=== PATIENT | female | born 1980 | race Caucasian/White ===

== ENCOUNTER 2017-06-01 15:11 | Emergency (ER) | payer OTHER ==
[2017-06-01 15:16] VITALS: BMI 24.7
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
[2017-06-01] MEDS ORDERED: CYCLOBENZAPRINE HCL 10 MG TABLET (FP) PO ONE (15:27)
[2017-06-01 15:32] VITALS: BP 135/84; PULSE 88; TEMP 98.5
[2017-06-01] MEDS ORDERED: CYCLOBENZAPRINE HCL 10 MG TABLET (FP) ONE (15:36)
== END 2017-06-01 16:34 | disposition home or self-care (01) ==
LOC: FER 15:11
DX: S16.1XXA Strain of muscle, fascia and tendon at neck level, initial encounter (principal); Y04.2XXA Assault by strike against or bumped into by another person, initial encounter; Y93.89 Activity, other specified; Y92.159 Unspecified place in reform school as the place of occurrence of the external cause; Y99.0 Civilian activity done for income or pay
CPT/HCPCS: 73030-TC-LT; 99282-25

== ENCOUNTER 2018-04-04 00:10 | Emergency (ER) | payer OTHER ==
[2018-04-04 00:31] VITALS: TEMP 98.5; BMI 29.0
--- NOTE | 2018-04-04 02:19 | PDOC ---
History of Present Illness - General Chief Complaint: Pain, Acute Stated Complaint: STOMACH AND JOINT PAIN Time Seen by Provider: 04/04/18 01:42 History Source: Patient - History of Present Illness Initial Comments: 04/04/18 02:43 37 year old female c/o r/l abdominal pain radiating to right flank x 1 day. reports 1 episode of vomiting today. denies fever/ chills, urinary symptoms, NVD + flatus Past History - Past Medical History Allergies/Adverse Reactions: Allergies Allergy/AdvReac Type Severity Reaction Status Date / Time No Known Allergies Allergy Verified 06/01/17 15:12 Home Medications: Ambulatory Orders Cyclobenzaprine HCl [Flexeril 10 mg] 10 mg PO TID PRN #9 tablet 06/01/17 Duloxetine HCl [Cymbalta] 60 mg PO DAILY 06/01/17 Topiramate [Topamax] 100 mg PO DAILY 06/01/17 Polyethylene Glycol 3350 [Miralax (For Daily Use) -] 17 gm PO DAILY #1 bottle COPD: No - Suicide/Smoking/Psychosocial Hx Smoking History: Never smoked Have you smoked in the past 12 months: No Hx Alcohol Use: No Drug/Substance Use Hx: No Substance Use Type: Alcohol Review of Systems - Review of Systems Able to Perform ROS?: Yes Is the patient limited Maori proficient: No Constitutional: No: Symptoms Reported, See HPI, Chills, Diaphoresis, Fever, Loss of Appetite, Malaise, Night Sweats, Weakness, Weight Stable, Unintentional Wgt. Loss, Unexplained wgt Loss, Other ABD/GI: Yes: Abdominal cramping. No: Symptoms Reported, See HPI, Abdominal Distended, Abd. Pain w/ defecation, Blood Streaked Bowels, Constipated, Diarrhea , Difficulty Swallowing, Nausea, Poor Appetite, Poor Fluid Intake, Rectal Bleeding, Vomiting, Indigestion, Tarry Stools, Other : No: Symptoms Reported, See HPI, Burning, Dysuria, Discharge, Frequency, Flank Pain, Hematuria, Incontinence, Pain, Urgency, Testicular Mass, Testicular Swelling, Lesions, Testicular Pain, Other Musculoskeletal: Yes: Joint Pain. No: Symptoms Reported, See HPI, Back Pain, Gout, Joint Swelling, Muscle Pain, Muscle Weakness, Neck Pain, Joint Stiffness, Other Neurological: No: Symptoms reported, See HPI, Headache, Numbness, Paresthesia, Pre-Existing Deficit, Seizure, Tingling, Tremors, Weakness, Unsteady Gait, Ataxia, Dizziness, Other *Physical Exam - Vital Signs Last Vital Signs Temp Pulse Resp BP Pulse Ox 98.5 F 110 H 20 125/54 L 96 04/04/18 00:25 04/04/18 00:25 04/04/18 00:25 04/04/18 00:25 04/04/18 00:25 - Physical Exam General Appearance: Yes: Appropriately Dressed Respiratory/Chest: positive: Lungs Clear, Normal Breath Sounds Gastrointestinal/Abdominal: positive: Decreased BS, Protuberent, Distended, Rebound, Tenderness Musculoskeletal: positive: Normal Inspection Extremity: positive: Normal Capillary Refill Integumentary: positive: Normal Color, Dry, Warm Neurologic: positive: Fully Oriented, Alert, Normal Mood/Affect Moderate Sedation - Procedure Monitoring Vital Signs: Procedure Monitoring Vital Signs Temperature 98.5 F 04/04/18 00:25 Pulse Rate 110 H 04/04/18 00:25 Respiratory Rate 20 04/04/18 00:25 Blood Pressure 125/54 L 04/04/18 00:25 O2 Sat by Pulse Oximetry (%) 96 04/04/18 00:25 ED Treatment Course - LABORATORY CBC & Chemistry Diagram: 04/04/18 03:40 04/04/18 03:40 Medical Decision Making - Medical Decision Making Abdominal pain P: labs CTAP: pending: patient signed out to Marjorie WHARTON *DC/Admit/Observation/Transfer Diagnosis at time of Disposition: Constipation Qualifiers: Constipation type: unspecified constipation type Qualified Code(s): K59.00 - Constipation, unspecified - Discharge Dispostion Disposition: HOME - Prescriptions Prescriptions: Polyethylene Glycol 3350 [Miralax (For Daily Use) -] 17 gm PO DAILY #1 bottle - Referrals Referrals: Jeremy Shirley [Primary Care Provider] - - Patient Instructions Printed Discharge Instructions: Constipation Additional Instructions: Your CT scan shows constipation, no sign of an obstruction Your labs were normal Take meds for constipation as directed and increase fluids and fiber in diet Please follow up with your PMD - Post Discharge Activity Forms/Work/School Notes: Back to Work
[2018-04-04] MEDS ORDERED: SODIUM CHLORIDE 1,000 ML IV STA (02:28)
[2018-04-04] MEDS ORDERED: morphine CARPU-JECT 4 MG/1 ML DISP.SYRIN IVPUSH ONE (02:28)
[2018-04-04] MEDS ORDERED: ONDANSETRON 4 MG/2 ML VIAL IVPUSH ONE (02:30)
[2018-04-04] MEDS ORDERED: morphine SULFATE 4 MG/ML VIAL ONE (03:40)
[2018-04-04] MEDS ORDERED: ONDANSETRON 4 MG/2 ML VIAL ONE (03:40)
[2018-04-04 04:07] LABS: BASO % 0.5 % (0-2.0); EOS % 0.5 % (0-4.5); HEMATOCRIT 34.9 % (32.4-45.2); HEMOGLOBIN 12.7 GM/dL (10.7-15.3); LYMPH % 13.7 % (8-40); MCH 30.9 pg (25.7-33.7); MCHC 36.5 g/dl (32.0-36.0); MEAN CELL VOLUME 84.7 fl (80-96); MEAN PLT VOLUME 9.3 fl (7.5-11.1); MONO % 4.5 % (3.8-10.2); NEUT % 80.8 % (42.8-82.8); PLATELET COUNT 201 K/MM3 (134-434); RBC 4.12 M/mm3 (3.60-5.2); RDW 12.9 % (11.6-15.6); WHITE BLOOD COUNT 9.2 K/mm3 (4.0-10.0)
[2018-04-04 04:49] LABS: INR 0.94 (0.83-1.09); PROTHROMBIN TIME (PATIENT) 11.1 SEC (9.7-13.0)
[2018-04-04 04:51] LABS: ALBUMIN 3.4 g/dl (3.4-5.0); ALK PHOS 53 U/L (45-117); ANION GAP 9 MMOL/L (8-16); BILIRUBIN,TOTAL 0.2 mg/dL (0.2-1); BLOOD UREA NITROGEN 10 mg/dL (7-18); CALCIUM 8.1 mg/dL (8.5-10.1); CHLORIDE 108 mmol/L (98-107); CO2 19 mmol/L (21-32); CREATININE 0.7 mg/dL (0.55-1.3); GLUCOSE,RANDOM 94 mg/dL (74-106); LIPASE 189 U/L (73-393); POTASSIUM 3.8 mmol/L (3.5-5.1); SGOT/AST 40 U/L (15-37); SGPT/ALT 34 U/L (13-61); SODIUM 136 mmol/L (136-145); TOT PROT 6.8 g/dl (6.4-8.2)
[2018-04-04 04:51] LABS: ACTIVATED PTT 30.2 SECONDS (25.2-36.5)
[2018-04-04] MEDS ORDERED: morphine CARPU-JECT 2 MG/1 ML DISP.SYRIN IVPUSH ONE (06:08)
--- NOTE | 2018-04-04 08:36 | PDOC ---
*Physical Exam - Vital Signs Last Vital Signs Temp Pulse Resp BP Pulse Ox 98.5 F 110 H 20 125/54 L 96 04/04/18 00:25 04/04/18 00:25 04/04/18 00:25 04/04/18 00:25 04/04/18 00:25 - Physical Exam General Appearance: Yes: Appropriately Dressed. No: Apparent Distress HEENT: positive: Normal Voice Neck: positive: Supple Respiratory/Chest: negative: Respiratory Distress Gastrointestinal/Abdominal: positive: Soft. negative: Tender Musculoskeletal: negative: CVA Tenderness Integumentary: positive: Dry, Warm Neurologic: positive: Fully Oriented, Alert, Normal Mood/Affect ED Treatment Course - LABORATORY CBC & Chemistry Diagram: 04/04/18 03:40 04/04/18 03:40 - ADDITIONAL ORDERS Additional order review: Laboratory Results 04/04/18 04/04/18 04/04/18 04:11 04:11 03:50 PT with INR 11.10 INR 0.94 PTT (Actin FS) 30.2 Sodium Potassium Chloride Carbon Dioxide Anion Gap BUN Creatinine Creat Clearance w eGFR Random Glucose Lactic Acid 1.6 Calcium Total Bilirubin AST ALT Alkaline Phosphatase Total Protein Albumin Lipase Serum , Qual Blood Type A POSITIVE Antibody Screen Negative 04/04/18 04/04/18 03:40 03:40 PT with INR INR PTT (Actin FS) Sodium 136 Potassium 3.8 Chloride 108 H Carbon Dioxide 19 L Anion Gap 9 BUN 10 Creatinine 0.7 Creat Clearance w eGFR > 60 Random Glucose 94 Lactic Acid Calcium 8.1 L Total Bilirubin 0.2 AST 40 H ALT 34 Alkaline Phosphatase 53 Total Protein 6.8 Albumin 3.4 Lipase 189 Serum , Qual Negative Blood Type Antibody Screen 04/04/18 03:40 RBC 4.12 MCV 84.7 MCHC 36.5 H RDW 12.9 MPV 9.3 Neutrophils % 80.8 Lymphocytes % 13.7 Monocytes % 4.5 Eosinophils % 0.5 Basophils % 0.5 - Medications Given in the ED: ED Medications Discontinued Medications Generic Name Dose Route Start Last Admin Trade Name Freq PRN Reason Stop Dose Admin Sodium Chloride 1,000 mls @ 1,000 mls/hr 04/04/18 02:28 04/04/18 03:29 Normal Saline - IV 04/04/18 03:27 1,000 mls/hr ASDIR STA Administration Morphine Sulfate 4 mg 04/04/18 02:28 04/04/18 03:45 Morphine Injection - IVPUSH 04/04/18 02:29 4 mg ONCE ONE Administration Ondansetron HCl 4 mg 04/04/18 02:30 04/04/18 03:30 Zofran Injection IVPUSH 04/04/18 02:31 4 mg ONCE ONE Administration Medical Decision Making - Medical Decision Making 04/04/18 07:53 Pt signed out to me at 7am 37-year-old female, h/o possible SBO, here with right lower abdominal pain radiating to back. Per prior team, labs unremarkable. CT with contrast pending r/o SBO 04/04/18 08:54 CT + for constipation, no e/o SBO. On reassessment, Pt states pain improved. Will dc w/ miralax and PMD f/u *DC/Admit/Observation/Transfer Diagnosis at time of Disposition: Constipation Qualifiers: Constipation type: unspecified constipation type Qualified Code(s): K59.00 - Constipation, unspecified - Discharge Dispostion Disposition: HOME - Prescriptions Prescriptions: Polyethylene Glycol 3350 [Miralax (For Daily Use) -] 17 gm PO DAILY #1 bottle - Referrals Referrals: Jeremy Shirley [Primary Care Provider] - - Patient Instructions Printed Discharge Instructions: Constipation Additional Instructions: Your CT scan shows constipation, no sign of an obstruction Your labs were normal Take meds for constipation as directed and increase fluids and fiber in diet Please follow up with your PMD - Post Discharge Activity Forms/Work/School Notes: Back to Work
[2018-04-04] MEDS ORDERED: MORPHINE SULFATE 2 MG/ML VIAL ONE (08:40)
[2018-04-04 08:56] VITALS: BP 109/69; PULSE 68
[2018-04-04 09:35] LABS: URINE APPEARANCE CLEAR; URINE BILIRUBIN NEGATIVE (<2.0 mg/dL); URINE COLOR STRAW; URINE GLUCOSE (UA) NEGATIVE (NEGATIVE); URINE KETONE NEGATIVE (NEGATIVE); URINE LEUK ESTERASE NEGATIVE (NEGATIVE); URINE NITRITE NEGATIVE (NEGATIVE); URINE PROTEIN NEGATIVE (NEGATIVE); URINE UROBILINOGEN NEGATIVE mg/dL (0.2-1.0)
== END 2018-04-04 10:13 | disposition home or self-care (01) ==
LOC: JER 00:10
PROC: 3E0337Z Introduction of Electrolytic and Water Balance Substance into Peripheral Vein, Percutaneous Approach (ICD-10-PCS; principal; 2018-04-04)
PROC: 3E033NZ Introduction of Analgesics, Hypnotics, Sedatives into Peripheral Vein, Percutaneous Approach (ICD-10-PCS; 2018-04-04)
PROC: 3E033NZ Introduction of Analgesics, Hypnotics, Sedatives into Peripheral Vein, Percutaneous Approach (ICD-10-PCS; 2018-04-04)
PROC: 3E033GC Introduction of Other Therapeutic Substance into Peripheral Vein, Percutaneous Approach (ICD-10-PCS; 2018-04-04)
DX: K59.00 Constipation, unspecified (principal)
CPT/HCPCS: 36415; 74177-TC; 80053; 81003; 83605; 83690; 84703; 85025; 85610; 85730; 86850; 86900; 86901; 87040; 87086; 96361; 96374; 96375; 96376; 99281-25; J7030